=== PATIENT | male | born 1950 | race Caucasian/White ===

== ENCOUNTER 2021-03-27 09:23 | Day surgery (SDC) | payer OTHER ==
[2021-03-27] MEDS ORDERED: NA CHLORIDE 0.9% 1,000 ML ONE (09:52)
[2021-03-27] MEDS ORDERED: propofoL 200 MG/20 ML VIAL IV ONE (11:20)
--- NOTE | 2021-03-27 11:39 | ENDO RPT ---
[address], [address] COLONOSCOPY PROCEDURE REPORT EXAM DATE: 03/27/2021 PATIENT NAME: Bonilla Rodgers MR #: [id number] BIRTHDATE: 1950 ATTENDING: Marcelino Gann Dr STATUS: outpatient MANAGER MERCHANDISING: Jasmina Mir RN and Carly Batista INDICATIONS: The patient is a 70 yr old Male here for a colonoscopy due to personal history of colon polyps PROCEDURE PERFORMED: Colonoscopy with biopsy - cold polypectomy MEDICATIONS: Per Anesthesia. ESTIMATED BLOOD LOSS: None CONSENT: The patient understands the risks and benefits of the procedure and understands that these risks include, but are not limited to: sedation, allergic reaction, infection, perforation and/or bleeding. Alternative means of evaluation and treatment include, among others: physical exam, x-rays, and/or surgical intervention. The patient elects to proceed with this endoscopic procedure. DESCRIPTION OF PROCEDURE: During intra-op preparation period all mechanical medical equipment was checked for proper function. Hand hygiene and appropriate measures for infection prevention was taken. Procedure, possible complications, alternatives including, but not limited to possibility of bleeding, perforation, tear, infection, sepsis, need for surgery, need for blood transfusion, were explained to the patient. After the risks, benefits and alternatives of the procedure were thoroughly explained, Informed consent was verified, confirmed and timeout was successfully executed by the treatment team. The patient was placed in the left lateral position. A digital rectal exam was performed and revealed several skin tags. After appropriate level of anesthesia, the scope was passed. The EC-[id number] ([id number]) endoscope was introduced through the anus and advanced to the cecum. The quality of the prep was good. The instrument was then slowly withdrawn as the colon was fully examined. Scope withdrawal time was 9 minutes. COLON FINDINGS: A smooth sessile polyp measuring 2 mm in size was found in the ascending colon. A polypectomy was performed with cold forceps. Three smooth flat polyps ranging between 3-7mm in size were found in the transverse colon. A polypectomy was performed with cold forceps. A smooth sessile polyp measuring 3 mm in size was found in the descending colon. A polypectomy was performed with cold forceps. A polypoid shaped pedunculated polyp measuring 5 mm in size was found in the sigmoid colon. A polypectomy was performed with cold forceps. A smooth sessile polyp measuring 3 mm in size was found in the sigmoid colon. A polypectomy was performed with cold forceps. Mild diverticulosis was noted in the sigmoid colon. No bleeding was noted from the diverticulosis. Moderate sized internal hemorrhoids were found. Retroflexed views revealed medium hemorrhoids. The scope was then completely withdrawn from the patient and the procedure terminated. ADVERSE EVENTS: There were no complications. IMPRESSIONS: 1. 2 mm sessile polyp in the ascending colon; polypectomy was performed with cold forceps 2. Three flat polyps ranging between 3-7mm in size in the transverse colon; polypectomy was performed with cold forceps 3. 3 mm sessile polyp in the descending colon; polypectomy was performed with cold forceps 4. 5 mm pedunculated polyp in the sigmoid colon; polypectomy was performed with cold forceps 5. 3 mm sessile polyp in the sigmoid colon; polypectomy was performed with cold forceps 6. Mild diverticulosis in the sigmoid colon 7. Moderate sized internal hemorrhoids 8. Intubation to cecum 9. Personal history of colon polyps RECOMMENDATIONS: 1. await biopsy results 2. avoid NSAIDS for 2 weeks RECALL: Return in 3 year(s) for Colonoscopy. Marcelino Gann Dr eSigned: Marcelino Gann Dr 03/27/2021 11:38 AM cc: Irena Logan CPT CODES: ICD9 CODES: PATIENT NAME: Bonilla Rodgers MR#: [id number]
[2021-03-27 16:19] VITALS: TEMP 97.9
[2021-03-27 16:23] VITALS: BP 133/62; O2SAT 96
== END 2021-03-27 12:15 | disposition home or self-care (01) ==
LOC: OR 09:23
PROVIDERS: ATTEND Internal Medicine Gastroenterology
PROC: 0DBL8ZX Excision of Transverse Colon, Via Natural or Artificial Opening Endoscopic, Diagnostic (ICD-10-PCS; 2021-03-27)
PROC: 0DBN8ZX Excision of Sigmoid Colon, Via Natural or Artificial Opening Endoscopic, Diagnostic (ICD-10-PCS; 2021-03-27)
PROC: 0DBM8ZX Excision of Descending Colon, Via Natural or Artificial Opening Endoscopic, Diagnostic (ICD-10-PCS; 2021-03-27)
PROC: 0DBK8ZX Excision of Ascending Colon, Via Natural or Artificial Opening Endoscopic, Diagnostic (ICD-10-PCS; principal; 2021-03-27 11:00)
DX: Z86.010 Personal history of colon polyps (principal); K57.30 Diverticulosis of large intestine without perforation or abscess without bleeding; D12.2 Benign neoplasm of ascending colon; D12.4 Benign neoplasm of descending colon; D12.5 Benign neoplasm of sigmoid colon; D12.3 Benign neoplasm of transverse colon; Z20.822 Contact with and (suspected) exposure to COVID-19
CPT/HCPCS: 82947; 88305; 45380; U0002; J2704; J7030